=== PATIENT | male | born 1965 | race Caucasian/White ===

== ENCOUNTER → 2025-05-24 07:16 | Outpatient (REF) | payer BC, SELFPAY | LOC: RAD 07:16 | PROVIDERS: ATTENDING PHYSICIAN Internal Medicine Cardiovascular Disease; FAMILY PHYSICIAN Family Medicine | DX: K83.9 Disease of biliary tract, unspecified (principal); R10.9 Unspecified abdominal pain | CPT/HCPCS: 76700 ==